=== PATIENT | female | born 1935 | race Caucasian/White ===

== ENCOUNTER 2016-11-25 15:50 | Inpatient (IN) | payer OTHER ==
--- NOTE | ~2016-11-25 | MR134 ---
[facility] A Service of [facility] RADIOLOGY TEXT RESULTS PATIENT: ANA DALE LOCATION: [facility] 339-01 : 34 UNIT #: [id number] AGE: [address]: Lu Brandt MD SEX: F ORDER DR: [id number] [facility] [address] [place], [place] [address] [id number] I MR#: [id number] Acc #: [id number] NAME: ANA DALE : 1935 SEX: F STUDY DATE/TIME: 11/26/2016 20:28 UNIT: [address] ROOM: [facility] STUDY DESCRIPTION: MR MRA Neck Wo Contrast Attending Physician: Lu Brnadt M.D. Ordering Physician: Sarah Tapia M.D. Primary Care Physician: James Nixon Jr., M.D. MRI CENTER REPORT This report is preliminary unless electronic signature is present. EXAM Cervical carotid MR angiography HISTORY Abnormal head CT on 11/25/2016. At that time, the patient presented with confusion over the past [address] suggested a recent infarct. TECHNIQUE MR angiographic imaging was performed across the carotid bifurcations with 2-D [id number]-eq-fpiqst and 3-D MRA techniques. FINDINGS Both bifurcations are widely patent. There is no evidence of stenosis by NASCET criteria. Antegrade flow was seen in both vertebral arteries with the left vertebral being more dominant. IMPRESSION Normal. Dictated by... Jean Carlos Sánchez M.D. THIS IS AN ELECTRONICALLY VERIFIED REPORT Jean Carlos Sánchez M.D. at 11/27/2016 10:45 AM HINA/mary TD: 11/27/2016 08:31 JOB #: [id number] MRI CENTER REPORT Page 1 of 1 COPY
--- NOTE | ~2016-11-25 | MR122 ---
[facility] A Service of [facility] & [facility] RADIOLOGY TEXT RESULTS PATIENT: ANA DALE LOCATION: [facility] 339-01 : 34 UNIT #: [id number] AGE: [address]: Lu Brandt MD SEX: F ORDER DR: [id number] [facility] [address] [place], [place] [address] [id number] I MR#: [id number] Acc #: [id number] NAME: ANA DALE : 1935 SEX: F STUDY DATE/TIME: 11/26/2016 20:28 UNIT: [address] ROOM: [facility] STUDY DESCRIPTION: MR MRA Head Wo Contrast Attending Physician: Lu Brandt M.D. Ordering Physician: Sarah Tapia M.D. Primary Care Physician: James Nixon Jr., M.D. MRI CENTER REPORT This report is preliminary unless electronic signature is present. EXAM Intracranial MR angiogram HISTORY Subacute infarct right parietal lobe, confusion of recent onset. TECHNIQUE MR angiographic imaging was performed from the skull base to the [place] FINDINGS MR angiographic evaluation shows no evidence of aneurysm, vascular malformation or major branch vessel occlusion. No severe intracranial stenosis is seen. There is mild vessel wall irregularity in the siphons on both sides without critical stenosis. No major branch vessel cutoff is seen in the right middle cerebral artery. IMPRESSION Mild atherosclerotic disease in the carotid siphons. Otherwise negative intracranial MR angiogram. Dictated by... Jean Carlos Sánchez M.D. THIS IS AN ELECTRONICALLY VERIFIED REPORT Jean Carlos Sánchez M.D. at 11/27/2016 10:45 AM Wang TD: 11/27/2016 08:30 JOB #: [id number] MRI CENTER REPORT Page 1 of 1 COPY
--- NOTE | ~2016-11-25 | CT71 ---
[facility] A Service of [facility] RADIOLOGY TEXT RESULTS PATIENT: ANA DALE LOCATION: [facility] 339-01 : 34 UNIT #: [id number] AGE: [address]: Lu Brandt MD SEX: F ORDER DR: [id number] [facility] [address] [place], [place] [address] [id number] I MR#: [id number] Acc #: [id number] NAME: ANA DALE. : 1935 SEX: F STUDY DATE/TIME: 11/25/2016 16:43 UNIT: [address] ROOM: [facility] STUDY DESCRIPTION: CT Head Wo Contrast Attending Physician: Lu Brandt M.D. Ordering Physician: Violet Pastrana M.D. Primary Care Physician: James Nixon Jr., M.D. MEDICAL IMAGING REPORT This report is preliminary unless electronic signature is present EXAM CT brain without contrast, 11/25/2016 COMPARISON STUDIES None HISTORY Confusion, weakness and fever for 3 days. TECHNIQUE Transaxial imaging of the brain was performed without contrast media. This CT exam was performed with one or more of the following radiation dose reduction techniques: automatic exposure control, adjustment of mA and/or kV according to patient size, and iterative reconstruction. COMPARISON The patient's most recent exam. FINDINGS There is generalized prominence of the ventricles and CSF-containing spaces. There is some decreased attenuation in the periventricular white matter. There is a more focal area of low attenuation in the right parietal region extending out to the cortex. This is not present previously. There is no evidence of edema. No fluid collections are identified. Bone windows are reviewed. There are atherosclerotic calcifications in the carotid siphons. No fractures are identified. CONCLUSION Generalized atrophy. Chronic ischemic changes in the periventricular white matter. More focal area of low attenuation in the right parietal region extending out to the cortex which may represent a subacute area of infarction. This could be further characterized by MRI. [facility] A Service [facility] RADIOLOGY TEXT RESULTS PATIENT: ANA DALE LOCATION: [facility] 339-01 : 34 UNIT #: [id number] AGE: [address]: Lu Brandt MD SEX: F ORDER DR: Dictated by... Inderjit Talamantes M.D. THIS IS AN ELECTRONICALLY VERIFIED REPORT Inderjit Talamantes M.D. at 11/26/2016 3:10 PM REINA/basil TD: 11/26/2016 08:50 JOB #: [id number] MEDICAL IMAGING REPORT Page 1 of 1 COPY
--- NOTE | ~2016-11-25 | MR18 ---
[facility] A Service of [facility] RADIOLOGY TEXT RESULTS PATIENT: ANA DALE LOCATION: [facility] 339-01 : 34 UNIT #: [id number] AGE: [address]: Lu Brandt MD SEX: F ORDER DR: [id number] [facility] [address] [place], [place] [address] [id number] I MR#: [id number] Acc #: [id number] NAME: ANA DALE. : 1935 SEX: F STUDY DATE/TIME: 11/25/2016 20:51 [facility] by [facility] STUDY DESCRIPTION: MR Brain Wo Contrast Attending Physician: Lu Brandt M.D. Ordering Physician: Lu Brandt M.D. Primary Care Physician: James Nixon Jr., M.D. MRI CENTER REPORT This report is preliminary unless electronic signature is present. EXAM Brain MRI without HISTORY Abnormal CT with concern for possible subacute infarct. MRI pursued. COMMENT MRI of the brain performed without contrast using routine 1.5T imaging technique and motion limiting sequences. The comparison head CT is from earlier on 11/25/2016. On the diffusion sequence, there is some increased signal intensity in the right parietal cortex and underlying white matter on the source images. This does not appear to have restricted diffusion on the ADC map but it is new when comparison is made to an MRI from 08/23/2014. This could be an area of more subacute to chronic ischemia interval since the 2013 examination. Please correlate with clinical course. It is superimposed upon a background of extensive white matter signal abnormality which is probably due to small vessel disease and most confluent in the deep to periventricular white matter. There is generalized atrophy. There is no extraaxial fluid collection. The major intracranial flow voids are maintained. The patient has had cataract surgery bilaterally. There is fluid or inflammatory change in the right side mastoid tip. The paranasal sinuses where visualized are clear. There is no intracranial mass effect. Hyperostosis frontalis interna noted. Study is motion limited. IMPRESSION 1. Area of signal abnormality in the right parietal lobe posterolaterally corresponding to the area in question on the earlier CT scan. This could be an area of late subacute to chronic ischemic insult. See the full discussion above. It is new when comparison is made to the MRI from 2013. [facility] A Service of [facility] RADIOLOGY TEXT RESULTS PATIENT: ANA DALE LOCATION: [facility] 339-01 : 34 UNIT #: [id number] AGE: [address]: Lu Brandt MD SEX: F ORDER DR: 2. Otherwise, there is a background of extensive preexisting probable sequela of small vessel disease. There is generalized atrophy. Please correlate for risk factors for small vessel disease. Study is motion limited. Dictated by... Candi Mast M.D. THIS IS AN ELECTRONICALLY VERIFIED REPORT Candi Mast M.D. at 11/26/2016 2:44 PM TAWNY/mary TD: 11/26/2016 12:39 JOB #: [id number] MRI CENTER REPORT Page 1 of 1 COPY
--- NOTE | ~2016-11-25 | CR72 ---
[facility] A Service of [facility] RADIOLOGY TEXT RESULTS PATIENT: ANA DALE LOCATION: [facility] 339-01 : 34 UNIT #: [id number] AGE: [address]: Lu Brandt MD SEX: F ORDER DR: [id number] [facility] [address] [place], [place] [address] [id number] I MR#: [id number] Acc #: [id number] NAME: ANA DALE. : 1935 SEX: F STUDY DATE/TIME: 11/25/2016 15:52 [facility]: [facility] STUDY DESCRIPTION: CR Chest Single View Portable Attending Physician: Lu Brandt M.D. Ordering Physician: Violet Pastrana M.D. Primary Care Physician: James Nixon Jr., M.D. MEDICAL IMAGING REPORT This report is preliminary unless electronic signature is present EXAM Portable chest, 11/25. INDICATIONS Hypoxia, weakness, fever for 1 week. FINDINGS AP portable chest is compared with 10/25/2015. Cardiac and mediastinal contours are stable. Thoracic aorta is tortuous and there are atherosclerotic calcifications within it. Mild left base atelectasis is present. Lungs otherwise are clear. No pneumothorax. There is degenerative disease in the shoulders. IMPRESSION Mild left base atelectasis, otherwise no active disease. Dictated by... Jean Carlos Barrios Jr., M.D. THIS IS AN ELECTRONICALLY VERIFIED REPORT Jean Carlos Barrios Jr., M.D. at 11/26/2016 1:38 PM STEVENSONK/annelise TD: 11/26/2016 07:45 JOB #: [id number] MEDICAL IMAGING REPORT Page 1 of 1 COPY
--- NOTE | ~2016-11-25 | DS ---
Unit #: [id number] #: [id number] Patient: ANA DALE [id number] [address] [place], [place] [address] [id number] I MR#: [id number] NAME: ANA DALE. ROOM: 339 Age: 80 Sex: F Admission Date: 11/25/2016 : 1935 Discharge Date: 11/27/2016 Attending Physician: Lu Brandt M.D. Primary Care Physician: James Nixon Jr., M.D. DISCHARGE SUMMARY REASON FOR ADMISSION Mental status change and acute kidney injury. HISTORY OF PRESENT ILLNESS/HOSPITAL COURSE The patient is an 80-year-old female, who routinely is followed by [facility] at home, who presented secondary to mental status changes. Apparently, she had been seeing people walking around in front of her. She had been talking to people, who are not really there. Family members became concerned she does reside at home with her daughter and son-in-law and therefore, she was brought to the emergency room for further evaluation and workup. Initially, it was noted her blood pressure was 82/46. Her O2 sats were decreased in the mid 80s and she did have a mildly elevated temperature of 99.4. She underwent routine laboratory studies. Initially, it was noted her creatinine was elevated at 2.6. She received copious IV fluids throughout her hospital course. Today at time of discharge, her creatinine now stands at 1.1. She does have mildly decreased GFR 50.7. She underwent a CT head without contrast initially in the emergency room, which did reveal possibility of a remote chronic versus subacute ischemic change in the parietal lobe and therefore, we consulted Dr. Tapia of [facility]. The patient underwent MRI brain as well as MRA head and neck. Her MRI was unremarkable. MRI did show prior chronic versus subacute CVA new since 2013. Decision has been made for Plavix as well as Lipitor at time of discharge. The patient did not have any residual deficits secondary either physically speaking or in regard to her speech. Secondary to her mental status change, we ruled out infectious process. Blood cultures were negative. Urine culture did not show any bacterial growth. CT chest without contrast was performed, which did not reveal any acute findings. Today, she is feeling much better. She is alert and oriented x3. Laboratory studies at time of discharge include a hemoglobin of 10.5, likely representing her baseline creatinine as mentioned above is 1.1 with a GFR of 50. Her ammonia level of note was normal in this hospital Unit #: [id number] #: [id number] Patient: ANA DALE admission. She currently appears stable for discharge home. Her medications have been reduced and seems likely the polypharmacy may be contributing to some of her mental status change at home. I have decreased her Xanax from 1 mg p.o. q.8 to 0.5 mg p.o. q.12 and her blood pressure medications will be reduced at time of discharge. Her atenolol will be decreased from 25 mg p.o. b.i.d. to daily and her lisinopril will be discontinued altogether. She did have persistently decreased blood pressure through hospital course. FINAL DISCHARGE DIAGNOSIS 1. Temporary encephalopathy likely secondary to polypharmacy and acute kidney injury. 2. History of hypertension. 3. 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 4. Prior history of recurrent urinary tract infections, this hospital admission negative. 5. Chronic obstructive pulmonary disease history and lifelong nonsmoker. 6. Gastritis. 7. Osteoarthritis. 8. Chronic pain syndrome. 9. Prior history of heart failure per report; however, 2D echocardiogram this hospital admission did reveal normal ejection fraction 50% to 55% with mild to moderate tricuspid regurgitation which was noted, but otherwise unremarkable. 10. Obesity. 11. 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 12. 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 DISCHARGE MEDICATIONS Zofran 4 mg p.o. q.6 p.r.n., Bentyl 25 mg p.o. q.6 p.r.n., Xanax 0.5 mg p.o. b.i.d. p.r.n., atenolol 25 mg p.o. daily, Lipitor 40 mg p.o. q.h.s., Singulair 10 mg p.o. daily, Plavix 75 mg p.o. daily, Protonix 40 mg p.o. daily. DISCHARGE CONDITION Stable. DISCHARGE DISPOSITION Home. FOLLOWUP Dr. Gia Casiano, [facility] in 7 to 10 days for routine medical care. Dictated by... Jonny Salinas/vikki TD: 11/28/2016 01:59 JOB #: [id number] Unit #: [id number] #: [id number] Patient: ANA DALE DISCHARGE SUMMARY Page 1 of 1 X Lu Brandt MD X DISCHARGE SUMMARY
--- NOTE | ~2016-11-25 | EKG ---
PATIENT: ANA DALE UNIT #: [id number] Ventricular Rate: 83 BPM Atrial Rate: 83 BPM P-R Interval: 280 ms QRS Duration: 108 ms Q-T Interval: 382 ms QTC Calculation(Bezet): 448 ms Calculated R [place]: -65 degrees Calculated T [place]: -38 degrees Diagnosis Line: Sinus rhythm with 1st degree A-V block Diagnosis Line: Left anterior fascicular block Diagnosis Line: T wave abnormality, consider inferior ischemia Diagnosis Line: Abnormal ECG Diagnosis Line: When compared with ECG of 25-OCT-2015 10:15, Diagnosis Line: ST elevation now present in Lateral leads Diagnosis Line: Nonspecific T wave abnormality no longer evident Diagnosis Line: in Lateral leads Diagnosis Line: Confirmed by AURELIANO MCKAY MD ([id number]) on 11/27/2016 Diagnosis Line: 9:15:01 AM INTERPRETING MD: WOODY LEON
--- NOTE | ~2016-11-25 | HP ---
Unit #: [id number] #: [id number] Patient: ANA DALE [id number] [address] [place], [place] [address] [id number] I MR#: [id number] NAME: ANA DALE. ROOM: 339 Age: 80 Sex: F Admission Date: 11/25/2016 : 1935 Attending Physician: Lu Brandt M.D. Primary Care Physician: James Nixon Jr., M.D. HISTORY AND PHYSICAL REASON FOR ADMISSION Mental status change and acute kidney injury. HISTORY OF PRESENT ILLNESS The patient is an 80-year-old female, who is routinely followed by [facility], currently who presents with no family members present at bedside. She initially when she was evaluated apparently, she was seeing people. She was very confused off and on, but has been having fevers as well as chills over the past several days. She was diagnosed with urinary tract infection by [facility], initially given a prescription for her urinary tract infection for Cipro; however, she states that she was allergic to it, called [facility], they gave her a prescription for Zithromax. She states that "never worked for her." She refused to take it. She subsequently states that she had increased abdominal pain and/or discomfort, was diagnosed with a cyst in her bladder and she feels as though that cyst as the cause of the majority of her symptoms. On chart review, I see that the patient was alert initially when she was evaluated here, but she was fairly confused. She was also noted to have mild increase in temperature of 99.4 on admission and her blood pressure was 82/46. She was O2 saturating at 86% on room air. PAST MEDICAL HISTORY Prior history of recurrent urinary tract infections, hypertension, cardiac arrhythmias, prior history of heart failure with undefined ejection fraction, COPD, gastritis, osteoarthritis, chronic pain syndrome. I believe alpha-1 antitrypsin deficiency as she states she has never smoked in her life time; however, she herself is a fairly poor historian. PAST SURGICAL HISTORY Tumor surgery on liver, partial hysterectomy, cholecystectomy, right knee replacement. HOME MEDICATIONS Per chart review includes lisinopril, atenolol, oxycodone, Singulair, Valium. Unit #: [id number] #: [id number] Patient: ANA DALE ALLERGIES Sulfa and Levaquin. SOCIAL HISTORY The patient resides at home with her daughter. No alcohol use. No tobacco use per chart review. FAMILY HISTORY Reviewed and noncontributory, not pertinent. REVIEW OF SYSTEMS Please see HPI. Twelve point otherwise except for those positive noted in the HPI. PHYSICAL EXAMINATION VITAL SIGNS: Temperature 99.4, pulse 86, respiratory rate 22, blood pressure 82/46. GENERAL APPEARANCE: The patient is morbidly obese 80-year-old female, alert and oriented x2. HEENT: Head, atraumatic and normocephalic. Ears; tympanic membranes . No evidence of any erythema or injection. NECK: Supple. CVS: S1, S2 without murmur. RESPIRATORY: Diminished, but clear. GI: Distended and diffuse tenderness. EXTREMITIES: Lower extremities with 1+ lower extremity edema noted. No calf tenderness. NEUROLOGIC: The patient is A and O x2. PSYCHIATRIC: The patient demonstrates normal mood and affect and responds to questions appropriately at the present time. DIAGNOSTIC STUDIES ER course, the patient received Zithromax and Rocephin. IMAGING STUDIES: Chest x-ray shows left basilar atelectasis. CT of the brain shows atrophy, chronic ischemic changes likely a subacute infarct in the right parietal area. IMAGING STUDIES: CBC normal. Chemistry showed potassium of 6.1, creatinine of 2.6. Lactic acid level normal. BNP normal. Urinalysis negative. CARDIOVASCULAR STUDIES: EKG shows normal sinus. No acute process noted. INITIAL ADMISSION DIAGNOSES 1. Mental status change. 2. Subacute infarct, right parietal area. 3. Questionable pneumonia versus atelectasis, community-acquired. 4. Hyperkalemia. 5. Acute kidney injury. 6. Elevated temperature on admission. 7. Hypotension, on admission. PLAN IV fluid rehydration. Check a.m. labs. IV antibiotics for possible community-acquired pneumonia. CT of the chest, blood cultures, MRI brain without contrast to ascertain area in question. Ultrasound carotids. Await further family members to arrive to provide further details in Unit #: [id number] #: [id number] Patient: ANA DALE regard to overall level of care. The patient states that she was recently diagnosed with a cyst within her bladder. I do not have prior records or any clear details. Therefore, we will try to obtain his prior records perhaps from [facility]. Further hospital course to follow. Dictated by Jonny Salinas/vikki TD: 11/26/2016 07:57 JOB #: [id number] HISTORY AND PHYSICAL Page 1 of 1 X Lu Brandt MD X HISTORY AND PHYSICAL
--- NOTE | ~2016-11-25 | CT57 ---
[facility] A Service of [facility] RADIOLOGY TEXT RESULTS PATIENT: ANA DALE LOCATION: [facility] 339-01 : 34 UNIT #: [id number] AGE: [address]: Lu Brandt MD SEX: F ORDER DR: [id number] [facility] [address] [place], [place] [address] [id number] I MR#: [id number] Acc #: [id number] NAME: ANA DALE. : 1935 SEX: F STUDY DATE/TIME: 11/25/2016 19:50 UNIT: [facility] ROOM: [facility] STUDY DESCRIPTION: CT Chest Wo Cont Attending Physician: Lu Brandt M.D. Ordering Physician: Lu Brandt M.D. Primary Care Physician: James Nixon Jr., M.D. MEDICAL IMAGING REPORT This report is preliminary unless electronic signature is present EXAM CT chest without contrast, 11/25/2016 HISTORY Fever and weakness today. Hypoxia. TECHNIQUE This CT exam was performed with one or more of the following radiation dose reduction techniques: automatic exposure control, adjustment of mA and/or kV according to patient size, and iterative reconstruction. FINDINGS CT chest without contrast is compared to chest CT 04/21/2015 and chest x-ray earlier today. There is minimal linear atelectasis or scarring in the left lung base. No airspace infiltrates. No pleural effusions. No adenopathy. Mild dilatation of the ascending thoracic aorta measuring 4.5 cm in diameter. This is slightly greater than on CT 04/21/2015 when it measured 4.2 cm. No pericardial thickening or effusion. Postop changes at the EG junction. Absent right hepatic lobe. IMPRESSION 1. No acute findings in the chest. No active disease in the lungs. 2. Minimal linear atelectasis or scarring in the left base. 3. No adenopathy. 4. Mild dilatation of the ascending thoracic aorta measuring 4.5 cm in diameter. 5. Postop changes at the EG junction. Absent right hepatic lobe could be postoperative. [facility] A Service of [facility] & [facility] RADIOLOGY TEXT RESULTS PATIENT: ANA DALE LOCATION: [facility] 339-01 : 34 UNIT #: [id number] AGE: [address]: Lu Brandt MD SEX: F ORDER DR: Dictated by... Emmanuel Camarena M.D. THIS IS AN ELECTRONICALLY VERIFIED REPORT Emmanuel Camarena M.D. at 11/26/2016 9:04 PM GENIA/veronica TD: 11/26/2016 11:40 JOB #: [id number] MEDICAL IMAGING REPORT Page 1 of 1 COPY
--- NOTE | ~2016-11-25 | CO ---
Unit #: [id number] #: [id number] Patient: ANA DALE [id number] [facility] [address]. [place], [place] [address] [id number] I MR#: [id number] NAME: ANA DALE. ROOM: 339 Age: 80 Sex: F Admission Date: 11/25/2016 : 1935 Attending Physician: Lu Brandt M.D. Primary Care Physician: James Nixon Jr., M.D. Consultation Date: 11/26/2016 CONSULTATION REPORT REASON FOR CONSULTATION Confusion and also what looks like abnormal CT and MRI, which shows subacute to chronic stroke. PATIENT IDENTIFICATION This is an 80-year-old, right-handed, white female, who was evaluated in room 339 at [facility]. SOURCE OF INFORMATION The patient, previous records, and her family, who were very helpful. We have seen this patient in the past actually in 08/2014. PROBLEM LISTS 1. Hypertension. 2. Recurrent UTIs. 3. History of gastritis. 4. Chronic pain. 5. Question about history of COPD, she is on nocturnal oxygen. 6. Status post appendectomy. 7. Cholecystectomy. 8. Hysterectomy. 9. Knee replacement. 10. Surgery for liver tumor removal. 11. Some kidney issues. 12. Questionable UTI. 13. Acute kidney injury. HISTORY OF PRESENT ILLNESS This is an 80-year-old female, who actually was brought in via EMS after her family called saying that she was not feeling well and she was confused. She has had something like this in the past and every time it is urinary tract infection. At this time, there may be pneumonia. Her BUN was 55, also creatinine was 1.8. Urinalysis did not really show anything and incidentally she ended up with an MRI. The MRI showed area of infarct in the right parietal lobe, which is old and meaning it has been there probably somewhere between 2013 when we saw her and now it is definitely not acute or subacute event. There are also other small-vessel type infarcts. When she came in, she was a bit hypotensive. Blood pressure 82/46. She is doing much better right now and wants to go home. The question right now is pneumonia and other issues. Unit #: [id number] #: [id number] Patient: ANA DALE She has done this in the past and has been to [facility] and other hospitals typically for urinary tract infection. It looks like she is developing some memory problems, but she is doing very well right now, and the family is more concerned about that. She is not weak anywhere. Otherwise, no double vision, speech, swallowing, or breathing problems. PAST MEDICAL HISTORY As discussed above. PAST SURGICAL HISTORY As discussed above. ALLERGIES Sulfa and levofloxacin. HOME MEDICATIONS Lisinopril 40 mg, atenolol 25 mg b.i.d., montelukast 10 mg, dicyclomine 20 mg, ondansetron 4 mg as needed q.6 hours, omeprazole 20 mg as needed daily, loperamide 2 mg as needed, zolpidem 12.5 mg at bedtime, oxycodone ER 20 mg 6 hours as needed, I believe she may have been taking Xanax also. FAMILY HISTORY Reviewed and because of age may not be important. There is nothing suggesting primary liver conditions. SOCIAL HISTORY She is . Denies tobacco, alcohol, or drug use. REVIEW OF SYSTEMS GENERAL: The patient denies any weight issues, fever, chills, rigor, or sweats. HEENT: No headaches. No double vision, earache, runny nose, or sore throat. CARDIOVASCULAR: No chest pain, clubbing, cyanosis, orthopnea, or palpitation. PULMONARY: No shortness of air, cough, or expectoration. GASTROINTESTINAL: No nausea, vomiting, diarrhea, or constipation. GENITOURINARY: No genitourinary symptoms. EXTREMITIES: Right now, no extremity problems. BACK: No back problem right now, but she has some back pain. PSYCHIATRIC: No psychotic issue. NEUROLOGIC: As discussed. No other hematologic, dermatologic, or endocrine problems. PHYSICAL EXAMINATION VITAL SIGNS: Temperature 97.7, pulse 79, respirations 18, blood pressure 97/62. No pain was reported. O2 saturations were 92% to 94%. BMI was reported as 31? NEUROLOGIC: The patient is awake. She is alert. She does know the exact date. She says it is or 17 of November and everything else was fine. She can name. She can follow commands. No right or left confusion. No finger agnosia. Unit #: [id number] #: [id number] Patient: ANA DALE Cranial nerve examination demonstrates full hill of vision. Eye movements are conjugate. I did not see any ptosis. I did not see any nystagmus. Extraocular movements are intact. Sensation on the face and scalp are normal. Strength of muscles of facial expression normal. Hearing seemed to be intact bilaterally. Tongue was midline. Uvula was midline. Palate elevation was normal. Head turning and shoulder shrugs were unremarkable. Motor examination demonstrated normal bulk, tone. Strength was essentially 5-/5 all over. No pronator drift or fine motor movement abnormalities were seen. Sensory examination intact for soft touch and pain sensation. No extinction was seen. Romberg was not evaluated. Gait examination was deferred. I could not get any reflexes. Toes are equivocal. Coordination was normal. Brief gait examination was okay. DIAGNOSTIC STUDIES LABORATORY RESULTS: Reviewed personally. IMAGING STUDIES: Reviewed personally. IMPRESSION 1. Likely toxic metabolic encephalopathy. She has acute kidney injury. She may have pneumonia and she frequently has done this with urinary tract infection. 2. This is not acute stroke and no acute stroke symptoms. PLAN 1. My plan is to check her urine again. 2. Check her MRA of the head and neck without contrast. Put her on Plavix. As she was taking aspirin regularly, we may have to adjust the medication that she is taking for GERD. B12 looks okay. 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 Call me for any other questions, issues, or concerns. Dictated by... Sarah Tapia M.D. CICI/vikki TD: 11/27/2016 02:36 JOB #: [id number] Unit #: [id number] #: [id number] Patient: ANA DALE CONSULTATION REPORT Page 1 of 1 X Sarah Tapia MD CONSULTATION REPORT
[~2016-11-25 15:50] MED LIST: ACETAMINOP650 MG/SU1 PO; ALPRAZOLAM PO; AMBIEN10 MG PO; AMBIEN12.5 M1 PO; AMBIEN12.5 MG PO; ANTI-DIARRHEAL2 M1 PO; ARTIFICIAL TEAR15 ML OP; ATENOLOL PO; ATENOLOL25 MG PO; AUGMENTIN875 MG PO; BENTYL20 MG PO; CEROVITE SENIO1 EACH PO; CIPRO PO; CLARITIN10 MG PO; DIFLUCAN100 MG PO; FLEXERIL10 M1 PO; LISINOPRIL PO; LISINOPRIL20 MG PO; MACRODANTIN50 MG PO; MEDROL DOSEPAK4 MG PO; MORPHINE IR PO; MOTRIN600 MG PO; MYCOSTATIN15 GM TOP; NATURAL VITA100 UNIT PO; NEURONTIN100 MG PO; NORVASC PO; ODORLESS GARLIC1 CAP PO; OXYCODONE HCL15 MG PO; OXYCODONE15 MG PO; PERCOCET 10/3251 TAB PO; PERCOCET PO; PERCOCET10 PO; PERCOCET5/325 PO; PHENERGAN12.5 MG PO; PRILOSEC20 M1 PO; PRILOSEC20 MG PO; PRINIVIL40 MG PO; PROAMATINE10 MG PO; PROTONIX20 MG PO; TEMAZEPAM PO; VIBRAMYCIN100 M1 PO; VISTARIL PO; XANAX1 MG PO
[2016-11-25 15:56] LABS: BASOPHIL% 0.5 % (0-2.5); EOSINOPHIL# 0.2 X10e3 (0-0.7); EOSINOPHIL% 2.5 % (0.0-7.0); HEMATOCRIT 36.8 % (35.0-45.0); LYMPHOCYTE# 2.3 X10e3 (1.0-3.5); LYMPHOCYTE% 30.4 % (17.0-45.0); MEAN CELL VOLUME 94.3 FL (83-96); MEAN CORPUSCULAR HEMOGLOBIN 30.8 PG (28-34); MEAN CORPUSCULAR HGB CONC 32.6 g/dL (30-36); MEAN PLATELET VOLUME 9.5 FL (6.5-11.5); MONOCYTE# 0.8 X10e3 (0-1.0); MONOCYTE% 10.7 % (3.0-12.0); NEUTROPHIL# 4.3 X10e3 (1.5-7.1); NEUTROPHIL% 55.9 % (40-75); PLATELET COUNT 174 X10e3 (140-420); RED CELL DISTRIBUTION WIDTH 13.2 % (11.0-15.5); WHITE BLOOD COUNT 7.7 X10e3 (4.0-10.5)
[2016-11-25 16:07] LABS: DIFF IND NO
[2016-11-25 16:23] LABS: PARTIAL THROMBOPLASTIN TIME 27.3 SECONDS (23.5-31.3); PROTHROMBIN TIME (PATIENT) 10.1 SECONDS (9.6-11.5)
[2016-11-25 16:28] LABS: URINE SOURCE CATH
[2016-11-25 16:35] LABS: URINE APPEARANCE CLEAR; URINE BILIRUBIN NEG (NEG); URINE BLOOD NEG (NEG); URINE COLOR DK YELLOW; URINE GLUCOSE NEG (NEG); URINE KETONE NEG (NEG); URINE LEUKOCYTE ESTERASE TRACE (NEG); URINE NITRATE NEG (NEG); URINE PROTEIN NEG (NEG); URINE SPECIFIC GRAVITY 1.018 (1.003-1.035); URINE UROBILINOGEN 0.2 MG/DL (NEG)
[2016-11-25 16:37] LABS: URBCS1 AUWI 0-2 /[HPF] (0-2); URINE BACTERIA AUWI NEG (NEGATIVE); URINE SQUAMOUS EPITHELIAL CELL NONE SEEN /[HPF]
[2016-11-25 16:41] LABS: ALBUMIN SERUM 3.8 g/dL (3.5-5.0); BILIRUBIN, DIRECT 0.1 mg/dL (0.0-0.2); BILIRUBIN,INDIRECT 0.7 mg/dL (0.0-0.9); BILIRUBIN,TOTAL 0.8 mg/dL (0.2-2.0); BUN/CREATININE RATIO 25.76; CALCIUM SERUM 8.7 mg/dL (8.4-10.2); CREATININE SERUM 2.6 mg/dL (0.6-1.4); GLOM FILT RATE Estimated 18.8 mL/min (>60); PROTEIN TOTAL SERUM 7.4 g/dL (6.0-8.3)
[2016-11-25 16:42] LABS: CULTURE INDICATED? NO
[2016-11-25 16:43] LABS: POTASSIUM 6.1 mmol/L (3.5-5.1)
[2016-11-25 17:54] LABS: INFLUENZA A NEG (NEG); INFLUENZA B NEG (NEG)
[2016-11-25 18:58] LABS: AMPHETAMINE NEG (NEG); BARBITURATES NEG (NEG); BENZODIAZEPINES POS (NEG); COCAINE NEG (NEG); MARIJUANA NEG (NEG); OPIATES POS (NEG); TRICYCLIC ANTIDEPRESSANTS NEG (NEG); U METHADONE NEG (NEG)
[2016-11-26] MEDS ORDERED: ZESTRIL40 MG PO (01:07)
[2016-11-26] MEDS ORDERED: ATENOLOL25 MG PO (01:09)
[2016-11-26 01:10] LABS: %MB 1.9 % (0.0-4.0); MB 1.3 ng/ml
[2016-11-26] MEDS ORDERED: MONTELUKAST SOD10 MG PO (01:11)
[2016-11-26] MEDS ORDERED: BENTYL20 M1 PO (01:14)
[2016-11-26] MEDS ORDERED: ONDANSETRON4 MG/TAB PO (01:17)
[2016-11-26 01:19] LABS: BUN/CREATININE RATIO 26.81; CALCIUM SERUM 8.1 mg/dL (8.4-10.2); CREATININE SERUM 2.2 mg/dL (0.6-1.4); GLOM FILT RATE Estimated 22.8 mL/min (>60)
[2016-11-26] MEDS ORDERED: OMEPRAZOLE20 M2 PO (01:19)
[2016-11-26] MEDS ORDERED: ANTIDIARRHEAL2 MG PO (01:21)
[2016-11-26 01:23] LABS: POTASSIUM 5.6 mmol/L (3.5-5.1)
[2016-11-26] MEDS ORDERED: ZOLPIDEM TART12.5 M1 PO (01:24)
[2016-11-26] MEDS ORDERED: XANAX1 MG PO (01:39)
[2016-11-26 04:40] LABS: BASOPHIL% 0.5 % (0-2.5); EOSINOPHIL# 0.2 X10e3 (0-0.7); EOSINOPHIL% 3.5 % (0.0-7.0); HEMATOCRIT 34.5 % (35.0-45.0); HEMOGLOBIN 11.1 gm/dL (12.0-16.0); LYMPHOCYTE# 1.7 X10e3 (1.0-3.5); LYMPHOCYTE% 27.3 % (17.0-45.0); MEAN CELL VOLUME 95.4 FL (83-96); MEAN CORPUSCULAR HEMOGLOBIN 30.8 PG (28-34); MEAN CORPUSCULAR HGB CONC 32.2 g/dL (30-36); MEAN PLATELET VOLUME 9.1 FL (6.5-11.5); MONOCYTE# 0.6 X10e3 (0-1.0); MONOCYTE% 8.8 % (3.0-12.0); NEUTROPHIL# 3.7 X10e3 (1.5-7.1); NEUTROPHIL% 59.9 % (40-75); PLATELET COUNT 156 X10e3 (140-420); RED BLOOD COUNT 3.62 X10e (3.90-5.30); RED CELL DISTRIBUTION WIDTH 13.6 % (11.0-15.5); WHITE BLOOD COUNT 6.3 X10e3 (4.0-10.5)
[2016-11-26 04:41] LABS: DIFF IND NO
[2016-11-26 05:37] LABS: BUN/CREATININE RATIO 30.55; CALCIUM SERUM 8.2 mg/dL (8.4-10.2); CREATININE SERUM 1.8 mg/dL (0.6-1.4); GLOM FILT RATE Estimated 28.7 mL/min (>60); POTASSIUM 5.1 mmol/L (3.5-5.1)
[2016-11-26 05:47] LABS: FOLATE (FOLIC ACID) 19.5 ng/mL (>5.8)
[2016-11-26 06:19] LABS: %MB 1.5 % (0.0-4.0); MB 1.1 ng/ml
[2016-11-27 08:01] LABS: HEMATOCRIT 32.2 % (35.0-45.0); HEMOGLOBIN 10.5 gm/dL (12.0-16.0); MEAN CELL VOLUME 94.4 FL (83-96); MEAN CORPUSCULAR HEMOGLOBIN 30.9 PG (28-34); MEAN CORPUSCULAR HGB CONC 32.7 g/dL (30-36); MEAN PLATELET VOLUME 8.5 FL (6.5-11.5); RED BLOOD COUNT 3.41 X10e (3.90-5.30); RED CELL DISTRIBUTION WIDTH 12.9 % (11.0-15.5); WHITE BLOOD COUNT 4.9 X10e3 (4.0-10.5)
[2016-11-27 08:40] LABS: BUN/CREATININE RATIO 27.27; CALCIUM SERUM 8.3 mg/dL (8.4-10.2); CREATININE SERUM 1.1 mg/dL (0.6-1.4); GLOM FILT RATE Estimated 50.7 mL/min (>60); POTASSIUM 4.7 mmol/L (3.5-5.1)
[2016-11-27] MEDS ORDERED: PROTONIX PO (10:07)
[2016-11-27] MEDS ORDERED: ACETAMINOPHEN650 M1 PO (10:07)
[2016-11-27] MEDS ORDERED: LIPITOR40 MG PO (10:07)
[2016-11-27] MEDS ORDERED: CLOPIDOGREL75 MG PO (10:08)
== END 2016-11-27 11:15 | disposition home health service (06) | DRG 682 ==
LOC: CED 15:50 → CEDOF 18:10 → C3A PCU 20:47
PROVIDERS: Emergency Medicine; Family Medicine
PROC: B33RZZZ Magnetic Resonance Imaging (MRI) of Intracranial Arteries (ICD-10-PCS; principal; 2016-11-26)
PROC: B33GZZZ Magnetic Resonance Imaging (MRI) of Bilateral Vertebral Arteries (ICD-10-PCS; 2016-11-26)
PROC: B24BYZZ Ultrasonography of Heart with Aorta using Other Contrast (ICD-10-PCS; 2016-11-26)
DX: N17.9 Acute kidney failure, unspecified (principal); G92 Toxic encephalopathy; I95.9 Hypotension, unspecified; E87.5 Hyperkalemia; E66.01 Morbid (severe) obesity due to excess calories; J44.9 Chronic obstructive pulmonary disease, unspecified; I07.1 Rheumatic tricuspid insufficiency; F03.90 Unspecified dementia, unspecified severity, without behavioral disturbance, psychotic disturbance, mood disturbance, and anxiety; J98.11 Atelectasis; Z90.49 Acquired absence of other specified parts of digestive tract; Z90.711 Acquired absence of uterus with remaining cervical stump; Z96.651 Presence of right artificial knee joint; Z88.1 Allergy status to other antibiotic agents; Z88.2 Allergy status to sulfonamides; Z86.73 Personal history of transient ischemic attack (TIA), and cerebral infarction without residual deficits; K29.70 Gastritis, unspecified, without bleeding; M19.90 Unspecified osteoarthritis, unspecified site; G89.4 Chronic pain syndrome; I12.9 Hypertensive chronic kidney disease with stage 1 through stage 4 chronic kidney disease, or unspecified chronic kidney disease; N18.4 Chronic kidney disease, stage 4 (severe); Z68.31 Body mass index [BMI] 31.0-31.9, adult
CPT/HCPCS: 36415; 51701; 70450; 70544; 70547; 70551; 71010; 71250; 80048; 80061; 80076; 80307; 81003; 82140; 82550; 82553; 82607; 82746; 82947; 83036; 83605; 83880; 84443; 84484; 85025; 85027; 85610; 85730; 87040; 87804; 93005; 93306; 96365; 96367; 97161; 99285; J0456; J0696; J1650; J2060

== ENCOUNTER → 2017-04-27 | Outpatient (CLI) | payer OTHER ==
[~2017-04-27] MED LIST changes: +ACETAMINOPHEN650 M1 PO; +ANTIDIARRHEAL2 MG PO; +BENTYL20 M1 PO; +CLOPIDOGREL75 MG PO; +LIPITOR40 MG PO; +MONTELUKAST SOD10 MG PO; +OMEPRAZOLE20 M2 PO; +ONDANSETRON4 MG/TAB PO; +PROTONIX PO; +ZESTRIL40 MG PO; +ZOLPIDEM TART12.5 M1 PO
--- NOTE | ~2017-04-27 | MY29 ---
[facility] A Service of [facility] RADIOLOGY TEXT RESULTS PATIENT: ANA DALE LOCATION: [facility] : 34 UNIT #: [id number] AGE: [address]: ELIZABETH ACHARYA SEX: F ORDER DR: [id number] [place] [id number] [facility]. [place], [place] [address] [id number] O MR#: [id number] Acc #: [id number] NAME: ANA DALE. : 1935 SEX: F STUDY DATE/TIME: 04/27/2017 13:14 UNIT: [facility] ROOM: STUDY DESCRIPTION: MY CYNTHIA SCREENING W/ CAD BILAT Attending Physician: Elizabeth Acharya Referring Physician: Elizabeth cAharya Primary Care Physician: Elizabeth Acharya MEDICAL IMAGING REPORT This report is preliminary unless electronic signature is present EXAM Bilateral digital screening mammogram with CAD COMPARISON June 21, 2013; June 16, 2011; July 13, 2008; August 03, 2007; June 01, 2006 INDICATION Breast cancer screening. 81-year-old asymptomatic female who reports of an unspecified family history of breast cancer. FINDINGS There are scattered fibroglandular densities. There are benign arterial calcifications in both breasts. There are no suspicious findings in the right breast. In the central middle third of the left breast there are two adjacent developing clusters of microcalcifications measuring up to approximately 1.3 cm conglomerate. IMPRESSION 1. No mammographic evidence of malignancy in the right breast. 2. Developing left breast microcalcifications. Further evaluation with spot magnification CC and spot magnification ML views is recommended. Patients over the age of 40 are entered into a reminder system with target due date for the next mammogram. A result letter will also be sent to the patient. BIRADS: 0 Incomplete; need additional imaging evaluation and/or prior mammograms for comparison. Dictated by... [facility] A Service [facility] RADIOLOGY TEXT RESULTS PATIENT: ANA DALE LOCATION: [facility] : 34 UNIT #: [id number] AGE: [address]: ELIZABETH ACHARYA SEX: F ORDER DR: Tan Sequeira M.D. THIS IS AN ELECTRONICALLY VERIFIED REPORT Tan Sequeira M.D. at 04/29/2017 11:46 AM NOAH/veronica TD: 04/28/2017 00:42 JOB #: [id number] MEDICAL IMAGING REPORT Page 1 of 1 COPY
== END | disposition home or self-care (01) ==
LOC: CWCC 12:15
DX: Z12.31 Encounter for screening mammogram for malignant neoplasm of breast (principal); Z80.3 Family history of malignant neoplasm of breast; R92.0 Mammographic microcalcification found on diagnostic imaging of breast
CPT/HCPCS: G0202

== ENCOUNTER → 2017-05-20 | Outpatient (CLI) | payer OTHER ==
--- NOTE | ~2017-05-20 | MY24 ---
[facility] A Service of [facility] RADIOLOGY TEXT RESULTS PATIENT: ANA DALE LOCATION: [facility] : 34 UNIT #: [id number] AGE: [address]: ELIZABETH GASTELUM SEX: F ORDER DR: [id number] [facility] [address] [place], [place] [address] [id number] O MR#: [id number] Acc #: [id number] NAME: ANA DALE : 1935 SEX: F STUDY DATE/TIME: 05/20/2017 9:05 UNIT: [facility] ROOM: STUDY DESCRIPTION: MARCELO CYNTHIA DELAROSA W/ CAD UNI LT Attending Physician: Elizabeth Gastelum Referring Physician: Cristhian Banerjee M.D. Ordering Physician: Cristhian Banerjee M.D. Primary Care Physician: Elizabeth Gastelum MEDICAL IMAGING REPORT This report is preliminary unless electronic signature is present EXAM Left digital diagnostic mammogram. INDICATIONS Indeterminate microcalcifications in the left breast on screening mammogram. PROCEDURE True lateral view of the left breast. Spot magnification views of the left breast in the CC and true lateral projections. COMPARISON Screening mammogram 04/27/2017. FINDINGS There are multifocal benign calcifications in the left breast. Scattered fibroglandular density with no dominant mass. Loosely grouped microcalcifications in the central left breast. This group of microcalcifications has mixed morphology. Some are coarse and most likely benign. Others are punctate and amorphous. No associated mass is seen. IMPRESSION 1. Mixed group of microcalcifications in the central left breast. Some of these are punctate and amorphous. Recommend stereotactic biopsy. 2. BIRADS B4 suspicious. Patients over the age of 40 are entered into a reminder system with target due date for the next mammogram. A result letter will also be sent to the patient. BIRADS: 4 Suspicious abnormality; biopsy should be considered. [facility] A Service of [facility] RADIOLOGY TEXT RESULTS PATIENT: ANA DALE LOCATION: [facility] : 34 UNIT #: [id number] AGE: [address]: ELIZABETH GASTELUM SEX: F ORDER DR: Dictated by... Willie Gregory M.D. THIS IS AN ELECTRONICALLY VERIFIED REPORT Willie Gregory M.D. at 05/21/2017 7:02 AM ELIZABETH/viri TD: 05/20/2017 14:42 JOB #: [id number] MEDICAL IMAGING REPORT Page 1 of 1 COPY
== END | disposition home or self-care (01) ==
LOC: CMAM 08:30
DX: R92.8 Other abnormal and inconclusive findings on diagnostic imaging of breast (principal); R92.0 Mammographic microcalcification found on diagnostic imaging of breast
CPT/HCPCS: G0206